=== PATIENT | female | born 1980 | race Caucasian/White ===

== ENCOUNTER 2017-01-02 16:27 | Emergency (ER) | payer OTHER | END 2017-01-02 17:30 | disposition home or self-care (01) | LOC: ER 16:27 | DX: J02.9 Acute pharyngitis, unspecified (principal); S00.412A Abrasion of left ear, initial encounter; W22.8XXA Striking against or struck by other objects, initial encounter; R05 Cough; Z88.2 Allergy status to sulfonamides | CPT/HCPCS: 87070; 87400; 87880; 99282; 99283 ==